=== PATIENT | female | born 1945 | race Caucasian/White ===

== ENCOUNTER 2018-03-06 11:42 | Inpatient (IN) | payer OTHER, BC ==
[~2018-03-06] VITALS: Ht 152.4 cm; Wt 83.6 kg
[2018-03-06 11:47] VITALS: Ht 152.4 cm; Wt 83.6 kg
[2018-03-06] MEDS ORDERED: CARVEDILOL3.125 M1 PO (12:30)
[2018-03-06] MEDS ORDERED: CEPHALEXIN500 MG PO (12:30)
[2018-03-06] MEDS ORDERED: LIPI20 PO (12:30)
[2018-03-06] MEDS ORDERED: FUROSEMIDE40 MG PO (12:31)
[2018-03-06] MEDS ORDERED: NEU300 PO (12:31)
[2018-03-06] MEDS ORDERED: DEPAKOTE125 MG PO (12:31)
[2018-03-06] MEDS ORDERED: LANTUS SOLOS100 U/M1 SQ (12:33)
[2018-03-06] MEDS ORDERED: HUMALOG100 U/ML SC (12:33)
[2018-03-06] MEDS ORDERED: KETOCONAZOLE2% (12:33)
[2018-03-06] MEDS ORDERED: ZESTRIL20 MG PO (12:34)
[2018-03-06] MEDS ORDERED: MULTIVITAMIN1 SGL PO (12:34)
[2018-03-06] MEDS ORDERED: OLANZAPINE10 MG PO (12:34)
[2018-03-06] MEDS ORDERED: MELOXICAM7.5 M1 PO (12:34)
[2018-03-06] MEDS ORDERED: METFORMIN HYDR500 M1 PO (12:34)
[2018-03-06] MEDS ORDERED: KLOR-CON M2020 MEQ PO (12:35)
[2018-03-06] MEDS ORDERED: VITAMIN D32000 I2 PO (12:35)
[2018-03-06] MEDS ORDERED: XANAX0.5 MG PO (12:35)
[2018-03-06] MEDS ORDERED: NATURE'S BLEND500 M3 PO (12:35)
[2018-03-06 12:42] LABS: BASOPHIL % 0.4 % (0-2); PLATELET COUNT 154 x10^3mcL (130-400)
[2018-03-06 12:47] LABS: RED CELL DISTRIBUTION WIDTH 15.2 % (11.5-14.5)
[2018-03-06 13:01] LABS: CALCIUM 8.9 mg/dL (8.5-10.1); CARBON DIOXIDE 32.9 mmol/L (21-32); CHLORIDE SERUM 106 mmol/L (98-107); CREATININE SERUM 0.9 mg/dL (0.6-1.0); GLUCOSE SERUM 124 mg/dL (74-106); POTASSIUM SERUM 4.1 mmol/L (3.5-5.1); SODIUM SERUM 142 mmol/L (136-145)
[2018-03-06 14:39] LABS: MAGNESIUM 1.8 mg/dL (1.8-2.4); PHOSPHOROUS 4.1 mg/dL (2.5-4.9)
[2018-03-06 14:41] LABS: CHOLESTEROL/HDL RATIO 1.8
[2018-03-06 14:42] VITALS: BP 135/72
[2018-03-06 14:46] LABS: FREE T4 1.38 ng/dL (0.76-1.46); T4(THYROXINE) 8.7 ug/dL (4.7-13.3)
[2018-03-06 14:58] LABS: T3 TOTAL 0.84 ng/mL
[2018-03-06 15:54] LABS: microscopic required? NO
[2018-03-06 16:03] LABS: urine erythrocyte NEGATIVE (NEGATIVE)
[2018-03-06 18:17] VITALS: BP 138/68
[2018-03-06 21:07] VITALS: BP 141/73
[2018-03-07 04:57] LABS: BASOPHIL % 0.2 % (0-2); PLATELET COUNT 172 x10^3mcL (130-400)
[2018-03-07 05:03] LABS: RED CELL DISTRIBUTION WIDTH 15.5 % (11.5-14.5)
[2018-03-07 05:19] LABS: CALCIUM 8.3 mg/dL (8.5-10.1); CARBON DIOXIDE 30.9 mmol/L (21-32); CHLORIDE SERUM 108 mmol/L (98-107); CREATININE SERUM 0.7 mg/dL (0.6-1.0); GLUCOSE SERUM 78 mg/dL (74-106); PHOSPHOROUS 4.4 mg/dL (2.5-4.9); POTASSIUM SERUM 3.6 mmol/L (3.5-5.1); SODIUM SERUM 144 mmol/L (136-145)
[2018-03-07 05:29] VITALS: BP 103/52
[2018-03-07 08:00] VITALS: BP 146/79
[2018-03-07 17:20] VITALS: BP 139/77
[2018-03-07 19:30] VITALS: BP 128/63
[2018-03-08 06:05] VITALS: BP 99/54
[2018-03-08 07:12] LABS: BASOPHIL % 0.4 % (0-2); CALCIUM 8.4 mg/dL (8.5-10.1); CARBON DIOXIDE 32.1 mmol/L (21-32); CHLORIDE SERUM 106 mmol/L (98-107); CREATININE SERUM 0.7 mg/dL (0.6-1.0); GLUCOSE SERUM 153 mg/dL (74-106); PHOSPHOROUS 4.5 mg/dL (2.5-4.9); PLATELET COUNT 179 x10^3mcL (130-400); POTASSIUM SERUM 3.9 mmol/L (3.5-5.1); SODIUM SERUM 141 mmol/L (136-145)
[2018-03-08 07:21] LABS: RED CELL DISTRIBUTION WIDTH 15.7 % (11.5-14.5)
[2018-03-08 08:48] VITALS: BP 99/48
[2018-03-08 18:48] VITALS: BP 137/73
[2018-03-08 21:00] VITALS: BP 132/63
[2018-03-09 05:45] VITALS: BP 127/61
[2018-03-09 06:15] LABS: BASOPHIL % 0.4 % (0-2); PLATELET COUNT 179 x10^3mcL (130-400)
[2018-03-09 06:21] LABS: CALCIUM 8.5 mg/dL (8.5-10.1); CARBON DIOXIDE 31.5 mmol/L (21-32); CHLORIDE SERUM 106 mmol/L (98-107); CREATININE SERUM 0.8 mg/dL (0.6-1.0); GLUCOSE SERUM 156 mg/dL (74-106); MAGNESIUM 2.1 mg/dL (1.8-2.4); PHOSPHOROUS 3.9 mg/dL (2.5-4.9); POTASSIUM SERUM 4.5 mmol/L (3.5-5.1); SODIUM SERUM 142 mmol/L (136-145)
[2018-03-09 06:45] LABS: RED CELL DISTRIBUTION WIDTH 15.1 % (11.5-14.5)
[2018-03-09 08:40] VITALS: BP 100/67
[2018-03-09 12:34] VITALS: BP 100/67
[2018-03-09] MEDS ORDERED: [UNRECOGNIZED DRUG - OTHER] TOP (12:39)
[2018-03-09] MEDS ORDERED: LAC PO (12:39)
[2018-03-09] MEDS ORDERED: LEVOFLOXACIN750 M1 PO (12:41)
== END 2018-03-09 15:40 | disposition home health service (06) | DRG 871 ==
LOC: ED 11:42 → MU 12:57
PROVIDERS: Emergency Medicine; Family Medicine; Internal Medicine
DX: A41.9 Sepsis, unspecified organism (principal); G93.40 Encephalopathy, unspecified; L03.115 Cellulitis of right lower limb; I83.213 Varicose veins of right lower extremity with both ulcer of ankle and inflammation; L97.319 Non-pressure chronic ulcer of right ankle with unspecified severity; E87.2 Acidosis; I82.412 Acute embolism and thrombosis of left femoral vein; I82.432 Acute embolism and thrombosis of left popliteal vein; R65.20 Severe sepsis without septic shock; B96.5 Pseudomonas (aeruginosa) (mallei) (pseudomallei) as the cause of diseases classified elsewhere; E11.65 Type 2 diabetes mellitus with hyperglycemia; F03.90 Unspecified dementia, unspecified severity, without behavioral disturbance, psychotic disturbance, mood disturbance, and anxiety; E11.51 Type 2 diabetes mellitus with diabetic peripheral angiopathy without gangrene; I87.2 Venous insufficiency (chronic) (peripheral); I10 Essential (primary) hypertension; D63.8 Anemia in other chronic diseases classified elsewhere; F20.9 Schizophrenia, unspecified; Z68.25 Body mass index [BMI] 25.0-25.9, adult; Z79.4 Long term (current) use of insulin; Z79.84 Long term (current) use of oral hypoglycemic drugs; Z66 Do not resuscitate
CPT/HCPCS: 82962; 83880; 84439; 85378; 97530-GP; J0696; J1644; J1815; J1956; J3370; J3490; J7050; Q0092